=== PATIENT | male | born 1935 | race Caucasian/White ===

== ENCOUNTER 2016-12-16 14:15 | Emergency (ER) | payer MEDICARE ==
[~2016-12-16] VITALS: Ht 167.6 cm; Wt 61.2 kg
[~2016-12-16 14:15] MED LIST: AMOXICILLIN500 MG PO; ASPIRIN81 MG PO; COLACE100 MG PO; DUONEB 3 MG/3 ML3 M1 NEB; GLIPIZIDE5 MG PO; HYDRODIURIL25 MG PO; HYDROXYZINE PAM25 M1 PO; LASIX40 MG PO; LEVAQUIN250 MG PO; LIPITOR40 MG PO; LIPITOR80 MG PO; LOPRESSOR50 M1 PO; METOPROLOL SR50 MG PO; PRILOSEC20 M2 PO; VITAMIN D1000 IU PO; [UNRECOGNIZED DRUG - OTHER] PO
[2016-12-16 14:21] VITALS: BP 189/80
[2016-12-16 14:46] LABS: BASO % 0.2 % (0.0-1.0); EOS # 0.4 10*3/uL (0.0-0.4); EOS % 4.9 % (1.0-4.0); HEMATOCRIT 37.1 % (42.0-52.0); HEMOGLOBIN 12.2 g/dl (14.0-18.0); IG # 0.1 10*3/uL (0.0-0.1); LYMPH # 2.2 10*3/uL (1.3-4.4); LYMPH % 24.7 % (27.0-41.0); MEAN CELL VOLUME 90.5 fl (80.0-94.0); MEAN CORPUSCULAR HGB 29.8 pg (27.0-31.0); MEAN CORPUSCULAR HGB CONC 32.9 g/dl (33.0-37.0); MEAN PLATELET VOLUME 9.1 fl (9.6-12.3); MONO # 0.8 10*3/uL (0.1-1.0); MONO % 9.2 % (3.0-9.0); NEUT # 5.3 10*3/uL (2.3-7.9); NEUT % 60.4 % (47.0-73.0); PLATELET COUNT AUTOMATED 221 10*3/uL (130-400); RED CELL DISTRI WIDTH 12.5 % (0-14.5); WHITE BLOOD COUNT 8.7 10*3/uL (4.8-10.8)
[2016-12-16 15:00] LABS: ALBUMIN 3.4 gm/dl (3.1-4.5); ALKALINE PHOSPHATASE 72 U/L (45-117); BILIRUBIN, TOTAL 0.5 mg/dl (0.2-1.0); BUN 24 mg/dl (7-24); CARBON DIOXIDE 26 mmol/L (21-32); CHLORIDE 104 mmol/L (98-107); EST GLOM FILT AFRICAN AMERICAN 52 ml/min; GLUCOSE 167 mg/dL (65-99); SGOT/AST 19 IU/L (3-35); SGPT/ALT 34 U/L (12-78); SODIUM 141 mmol/L (136-145)
[2016-12-16 17:23] LABS: BILIRUBIN NEGATIVE (NEGATIVE); BLOOD NEGATIVE (NEGATIVE); CLARITY CLEAR (CLEAR); COLOR YELLOW (YELLOW); GLUCOSE NEGATIVE (NEGATIVE); KETONE NEGATIVE (NEGATIVE); LEUKO ESTERASE NEGATIVE (NEGATIVE); NITRITE NEGATIVE (NEGATIVE); PH 5.5 (5.0-9.0); PROTEIN NEGATIVE (NEGATIVE); SPECIFIC GRAVITY <= 1.005 (1.005-1.030); UROBILINOGEN 0.2 E.U./dl (0.2-1.0)
[2016-12-16 17:33] LABS: BACTERIA TRACE; RBC 0-2 rbc/hpf (0-2); URINE AMPHETAMINES < 1000 (1000ng/ml); URINE BARBITURATES < 200 (200ng/ml); URINE COCAINE < 300 (300ng/ml); URINE REFLEX COMMENT NO (NO)
[2016-12-16] MEDS ORDERED: MIRALAX17 GM PO (18:43)
[2016-12-16] MEDS ORDERED: VENTOLIN H0.09 MG/AC INH (18:44)
[2016-12-16] MEDS ORDERED: OMEPRAZOLE20 M2 PO (18:44)
== END 2016-12-16 18:23 | disposition home health service (06) ==
LOC: ED 14:15
PROVIDERS: Physician Assistant
DX: R45.851 Suicidal ideations (principal); F32.1 Major depressive disorder, single episode, moderate; Z79.82 Long term (current) use of aspirin; Z90.49 Acquired absence of other specified parts of digestive tract; Z79.899 Other long term (current) drug therapy

== ENCOUNTER 2016-12-16 18:20 | Inpatient (IN) | payer MEDICARE ==
[~2016-12-16] VITALS: Ht 160 cm; Wt 8303.5 kg
[2016-12-16] MEDS ORDERED: MIRALAX17 GM PO (18:43)
[2016-12-16] MEDS ORDERED: VENTOLIN H0.09 MG/AC INH (18:44)
[2016-12-16] MEDS ORDERED: OMEPRAZOLE20 M2 PO (18:44)
[2016-12-16 18:54] VITALS: BP 150/66
[2016-12-16 21:17] VITALS: BP 153/65
[2016-12-17 07:53] VITALS: BP 124/61
[2016-12-17 08:14] LABS: HEMOGLOBIN A1c 7.9 % (4.8-5.6)
[2016-12-17 08:44] LABS: VITAMIN D, 25-HYDROXY 37.3 ng/mL (30-100)
[2016-12-17 20:40] VITALS: BP 139/65
[2016-12-18 03:59] VITALS: BP 153/65
[2016-12-18 07:49] VITALS: BP 123/63
[2016-12-18 20:00] VITALS: BP 140/72
[2016-12-19 08:11] VITALS: BP 120/65
[2016-12-19 17:48] VITALS: BP 137/86
[2016-12-19 20:15] VITALS: BP 148/70
[2016-12-20 08:12] VITALS: BP 127/68
[2016-12-20 19:57] VITALS: BP 138/62
[2016-12-21 08:00] VITALS: BP 145/68
[2016-12-21 20:00] VITALS: BP 136/64
[2016-12-22 08:00] VITALS: BP 131/67
[2016-12-22] MEDS ORDERED: LATU40TA PO (09:27)
[2016-12-22] MEDS ORDERED: CITALOPRAM HYDR20 MG PO (09:27)
== END 2016-12-22 11:10 | disposition other institution (70) | DRG 885 ==
LOC: 3N 18:20
PROVIDERS: Psychiatry & Neurology Psychiatry
DX: F33.9 Major depressive disorder, recurrent, unspecified (principal); R45.851 Suicidal ideations; E11.9 Type 2 diabetes mellitus without complications; F23 Brief psychotic disorder; G31.84 Mild cognitive impairment of uncertain or unknown etiology; I10 Essential (primary) hypertension; E78.5 Hyperlipidemia, unspecified; E03.9 Hypothyroidism, unspecified; I25.10 Atherosclerotic heart disease of native coronary artery without angina pectoris; F63.9 Impulse disorder, unspecified

== ENCOUNTER 2019-03-05 11:58 | Inpatient (IN) | payer MEDICARE, MEDICAID ==
[~2019-03-05] VITALS: Ht 167.6 cm; Wt 78.9 kg
[~2019-03-05 11:58] MED LIST changes: +CITALOPRAM HYDR20 MG PO; +LATU40TA PO; +MEDROL DOSEPAK4 MG PO; +MIRALAX17 GM PO; +OMEPRAZOLE20 M2 PO; +VENTOLIN H0.09 MG/AC INH
[2019-03-05 12:13] VITALS: BP 151/66
--- NOTE | 2019-03-05 12:27 | NUR ---
PT MOVED TO ROOM 4 BECAUSE PT STATED HE HAD THOUGHTS OF PUTTING THE CALL LIGHT AROUND HIS NECK.
[2019-03-05 12:37] LABS: BASO % 0.4 % (0.0-1.0); EOS # 0.3 10*3/uL (0.0-0.4); EOS % 3.7 % (1.0-4.0); HEMOGLOBIN 11.8 g/dl (14.0-18.0); LYMPH # 2.2 10*3/uL (1.3-4.4); LYMPH % 28.3 % (27.0-41.0); MEAN CELL VOLUME 92.1 fl (80.0-94.0); MEAN CORPUSCULAR HGB 30.2 pg (27.0-31.0); MEAN CORPUSCULAR HGB CONC 32.8 g/dl (33.0-37.0); MEAN PLATELET VOLUME 8.9 fl (9.6-12.3); MONO # 0.7 10*3/uL (0.1-1.0); MONO % 9.1 % (3.0-9.0); NEUT # 4.4 10*3/uL (2.3-7.9); PLATELET COUNT AUTOMATED 224 10*3/uL (130-400); RED BLOOD COUNT 3.91 10*6/uL (4.50-5.90); RED CELL DISTRI WIDTH 12.6 % (0-14.5); WHITE BLOOD COUNT 7.6 10*3/uL (4.8-10.8)
[2019-03-05 12:48] LABS: ACT PARTIAL THROMBO TIME 23.9 SECONDS (20.0-32.1); INTERNATIONAL NORM RATIO 0.9 (2.0-3.5)
[2019-03-05 12:53] LABS: ALBUMIN 3.3 gm/dl (3.1-4.5); ALKALINE PHOSPHATASE 68 U/L (45-117); BUN 26 mg/dl (7-24); CHLORIDE 104 mmol/L (98-107); CREATININE 1.31 mg/dL (0.70-1.30); POTASSIUM 5.2 mmol/L (3.5-5.1); SGOT/AST 19 IU/L (3-35); SGPT/ALT 27 U/L (12-78); SODIUM 138 mmol/L (136-145); TOTAL PROTEIN 6.6 gm/dL (6.4-8.2)
[2019-03-05 12:56] LABS: ETHYL ALCOHOL < 3.0 mg/dl (<3); TROPONIN I < 0.015 ng/ml (<0.045)
[2019-03-05 13:09] LABS: BILIRUBIN NEGATIVE (NEGATIVE); BLOOD NEGATIVE (NEGATIVE); CLARITY SL CLOUDY (CLEAR); COLOR YELLOW (YELLOW); GLUCOSE TRACE (NEGATIVE); KETONE NEGATIVE (NEGATIVE); LEUKO ESTERASE TRACE (NEGATIVE); NITRITE NEGATIVE (NEGATIVE); UROBILINOGEN 0.2 E.U./dl (0.2-1.0)
[2019-03-05 13:15] LABS: MUCOUS TRACE
[2019-03-05 13:18] LABS: URINE AMPHETAMINES < 1000 (1000ng/ml); URINE BARBITURATES < 200 (200ng/ml); URINE BENZODIAZEPINES < 200 (200ng/ml); URINE CANNABINOIDS (THC) < 50 (50ng/ml); URINE COCAINE < 300 (300ng/ml); URINE METHADONE < 300 (300ng/ml); URINE OPIATES < 300 (300ng/ml)
[2019-03-05 13:26] LABS: URINE PHENCYCLIDINE < 25 (25ng/ml)
--- NOTE | 2019-03-05 13:35 | NUR ---
JOSR BAÑUELOS HERE TO SEE PT.
--- NOTE | 2019-03-05 13:43 | NUR ---
psychiatric assessment: met with client to assess for suicidal ideation, and safety, client talked about a year ago he was accused of touching a lady there and he got upset, there was no confirmation of this, he said that he got upset last night because his niece told him that his room smelled bad and so he got very depressed, he had a knife which he gave up to the social staff worker and he thought about cutting himself and then in the night he woke up and thought about hanging himself with the cord in the bathroom so they sent him here, he told me that he was here on out unit once before. client reports that he is depressed and he is upset. client has no psychosis, he thinks that maybe his nephew is POA, but he is willing to be voluntary to this unit, i did call and make the referral and will wait, spoke with his nurse and dr mcneil.
--- NOTE | 2019-03-05 14:40 | NUR ---
U WILL CALL BACK WHEN THEY DECIDE IF THEY WILL TAKE PT. PT IS CURRENTLY EATING IN BED. IN NO ACUTE DISTRES.
[2019-03-05 14:55] LABS: BUN 25 mg/dl (7-24); CHLORIDE 109 mmol/L (98-107); CREATININE 1.22 mg/dL (0.70-1.30); SODIUM 139 mmol/L (136-145)
[2019-03-05 15:09] LABS: POTASSIUM 4.2 mmol/L (3.5-5.1)
--- NOTE | 2019-03-05 15:11 | NUR ---
Dr. Quiñones notified of critical glucose of 49.
--- NOTE | 2019-03-05 16:16 | NUR ---
PT RESTING COMFORTABLY IN BED. [facility] CALLED AND IS ON THEIR WAY TO GET PT.
--- NOTE | 2019-03-05 16:30 | NUR ---
OSCAR BARRERA a 83 year old M admitted via wheel chair from the EMERGENCY ROOM as a voluntary admission. Arrived on unit at 1630. ALLERGIES: KNA. Vital signs are: 97.3-83-16 157/60. The client signed the following forms with stated understanding: Authorization For The Release of Medical Information, Clothing List, Consent to Voluntary Admission and Hospitalization, Consent and Release Forms/Receipt of Rights, Acknowledgement of Advance Directive Information, Behavioral Health Consent Form, and Informed Consent of Medications. Admitted under the services of VIJAYA Lloyd MD. A search was conducted and hazardous articles were removed. Client was oriented to the unit. JOSR LAU
[2019-03-05 16:42] VITALS: BP 157/60
--- NOTE | 2019-03-05 17:50 | NUR ---
DR. HO NOTIFIED OF NEW ADMISSION, REVIEW MEDICATIONS WITH NEW ORDERS.
[2019-03-05 20:00] VITALS: BP 144/66
--- NOTE | 2019-03-05 20:43 | NUR ---
EVENING/DISCUSSION/RELAXTION PT6 ATTENDED AND PARTICIPATED IN ALL GROUP ACTIVITY'S. PT OPEN IN DISCUSSION AND ON TASK. PT DID NOT EXPRESS ANY S.I AT THIS TIME AND WILL CONTINUE TO ATTEND AND PARTICIPATE IN FUTURE GROUP SESSIONS.
--- NOTE | 2019-03-05 21:15 | NUR ---
DR LAROSE ON UNIT TO SEE PT FOR MEDICAL MANAGEMENT
--- NOTE | 2019-03-05 23:29 | NUR ---
24 HR chart check completed.
--- NOTE | 2019-03-06 05:05 | NUR ---
PT SLEPT FROM [id number]. WAS AWAKE & REMAINED IN BED QUIETLY. RETURNED TO SLEEP @ 0200.
--- NOTE | 2019-03-06 05:12 | NUR ---
PT HAS SLEPT PAST 2114
[2019-03-06 07:02] LABS: THYROID STIM HORMONE (HS) 1.38 uIU/ml (0.358-4.75)
[2019-03-06 08:06] LABS: VITAMIN D, 25-HYDROXY 45.8 ng/mL (30-100)
[2019-03-06 08:54] VITALS: BP 131/72
--- NOTE | 2019-03-06 09:12 | NUR ---
PHYSICAL THERAPY Nursing screen received and chart reviewed. Physical therapy referral received. Thank you. Marcelle Lerma,PT,DPT.
--- NOTE | 2019-03-06 11:37 | NUR ---
Spoke with Marylu at [facility]. Pt. is Custodial Care at facility and will return at discharge. Clinical Updates faxed to facility.
--- NOTE | 2019-03-06 15:33 | NUR ---
Treatment Plan meeting with Dr. Marinelli, RN, AT, and Precision Assembler Bench. Plan for discharge Early Next week. Pt. came to [facility] from [facility]. Will reach out to facility today to discuss discharge Planning.
--- NOTE | 2019-03-06 15:36 | NUR ---
PM GROUP/TEAR BOTTLES PT ATTENDED AFTERNOON GROUP THERAPY AND PARTICIPATED BY READING A BOOK THAT A FAMILY MEMBER HAD BROUGHT HIM. PT WAS QUIET AND FOCUSED. PT STATED, "I KNOW WHY I'M HERE NOW! THIS BOOK I'M READING TELLS ABOUT PEOPLE WHO DIDN'T BELIEVE IN GOD AND GOT INTO TROUBLE AND STARTED PRAYING AND GOD HELPED THEM. THAT'S IT, GOD IS TRYING TO HELP ME"
[2019-03-06 20:00] VITALS: BP 133/65
--- NOTE | 2019-03-06 21:58 | NUR ---
24 HR chart check completed.
--- NOTE | 2019-03-07 05:39 | NUR ---
PT HAS SLEPT PAST 2129
[2019-03-07 08:00] VITALS: BP 133/66
--- NOTE | 2019-03-07 08:30 | NUR ---
DR. HO ON FLOOR TO ASSESS PT.
--- NOTE | 2019-03-07 08:45 | NUR ---
Patient resting quietly with no c/o discomfort. Respirations easy and regular. Vital signs stable. No overt distress. HAILEE RUBIO
--- NOTE | 2019-03-07 10:19 | NUR ---
PHYSICAL THERAPY Physical therapy screen complete. Nursing reports patient is ambulatory. No PT needs at this time. Discharge PT orders. Thank you. Marcelle Lerma,PT,DPT
--- NOTE | 2019-03-07 10:30 | NUR ---
Dr. Marinelli met with Nursing staff this a.m. for treatment Plan meeting. Plan for discharge early next week with return to [facility].
--- NOTE | 2019-03-07 11:58 | NUR ---
AM GROUP/EXERCISE PT ATTENDED AND PARTICIPATED IN ALL GROUP ACTIVITIES. PT EXPRESSED NO SUICIDAL IDEATIONS WHILE IN GROUP.
--- NOTE | 2019-03-07 15:36 | NUR ---
PM GROUP/PAINTING AND CARDS PT ATTENDED AND PARTICIPATED IN ALL GROUP ACTIVITIES. PT EXPRESSED NO SUICIDAL IDEATIONS WHILE IN GROUP
--- NOTE | 2019-03-07 17:36 | NUR ---
Patient resting quietly with no c/o discomfort. Respirations easy and regular. Vital signs stable. No overt distress. HAILEE RUBIO
--- NOTE | 2019-03-07 18:51 | NUR ---
PT HAS NO ADVERSE MOODS OR BEHAVIORS THIS SHIFT. PT IS MEDICATION COMPLIANT. AMBULATORY IN HALLS, GAIT STEADY. PT PARTICIPATED IN GROUP, APPETITE GOOD. NO C/O AT THIS TIME. Q 15 MIN MONITORING PER POLICY.
[2019-03-07 20:00] VITALS: BP 138/62
--- NOTE | 2019-03-07 21:10 | NUR ---
P-RELIGOUS PREOCCUPATION. I-REDIRECTION WITH 1:1 THERAPEUTIC INTERVENTIONS. EDUCATE AND ENCOURAGE MEDICATION COMPLIANCE R-PATIENT STATING TO THIS NURSE "WE ARE ALL BROTHERS AND SISTERS IN [place]. I WILL PRAY FOR EVERYONE. MAYBE I SHOULD RUN FOR PRESIDENT. ANYTHING IS POSSIBLE. YOU PEOPLE DESERVE THE SAME THINGS EVERYONE ELSE. YOU GUYS HAVE FOUGHT FOR OUR COUNTRY ALSO. I FOUND A NEW FRIEND TODAY, HIS NAME IS SKYLER. P-CONTINUE TO ENCOURAGE MEDICATION COMPLIANCE, ENCOURAGE GROUP THERAPY WHILE AWAKE
[2019-03-08 08:00] VITALS: BP 127/59
--- NOTE | 2019-03-08 08:30 | NUR ---
Treatment Plan meeting with Dr. Marinelli, RN, AT, SW and Leadite Worker. Plan for discharge Next week. Pt. will return to [facility].
--- NOTE | 2019-03-08 08:37 | NUR ---
Patient resting quietly with no c/o discomfort. Respirations easy and regular. Vital signs stable. No overt distress. HAILEE RUBIO
--- NOTE | 2019-03-08 11:17 | NUR ---
Clinical Updates faxed to [facility] Attn: Marylu . Notified Marylu of plans to discharge next week.
--- NOTE | 2019-03-08 11:43 | NUR ---
AM GROUP/LEISURE INTERESTS PT ATTENDED MORNING GROUP THERAPY AND PARTICIPATED BY DOING SEVERAL WORDSEARCH PUZZLES. PT WAS QUIET AND ON TASK. PT EXPRESSED NO SUICIDAL IDEATIONS NOR ANY AUDITORY HALLUCINATIONS WHILE IN GROUP
--- NOTE | 2019-03-08 18:18 | NUR ---
PT DISCUSSED ADVENT TODAY, WROTE STORY ABOUT A BOY AND A DOG. PT SHOWED WORK TO PEERS AND STAFF, INTERACTING APPROPRIATELY WITH ALL. PT PARTICIPATING IN GROUPS, CALM, PLEASANT, COOPERATIVE.
[2019-03-08 19:28] VITALS: BP 137/62
--- NOTE | 2019-03-08 23:50 | NUR ---
P-ISOLATIVE I-REDIRECTION WITH 1:1 THERAPEUTIC INTERVENTIONS. EDUCATE AND ENCOURAGE MEDICATION COMPLIANCE R-PATIENT ISOLATIVE IN ROOM THROUGHOUT SHIFT. PATIENT MEDICATION COMPLIANT. PATIENT AMBULATING IN ROOM WITH STEADY GAIT. P-CONTINUE TO ENCOURAGE MEDICATION COMPLIANCE, ENCOURAGE GROUP THERAPY WHILE AWAKE
--- NOTE | 2019-03-09 00:58 | NUR ---
24 HR chart check completed.
--- NOTE | 2019-03-09 06:46 | NUR ---
PATIENT SLEPT 7 HOURS OF UNINTERRUPTED SLEEP THROUGHOUT SHIFT. Q 15 MINUTE CHECKS MAINTAINED
[2019-03-09 08:29] VITALS: BP 103/55
--- NOTE | 2019-03-09 11:48 | NUR ---
AM/EXERCISE/REMINISCE/ART PT ATTENDED AND PARTICIPATED IN GROUP. PT PLEASANT AND ON TASK WITH NO S.I. OR HALLUCINATIONS EXPRESSED AT THIS TIME. PT WILL CONTINUE TO ATTEND AN DPARTICIPATE IN FUTURE GROUP SESSIONS.
--- NOTE | 2019-03-09 14:36 | NUR ---
PT HAS NO ADVERSE MOODS OR BEHAVIORS. STATES HE IS HAPPY, PLEASANT, COOPERATIVE WITH ASSESSMENT. DENIES SI/HI. DENIES HALLUCINATIONS OR DELUSIONS. AMBULATES IN HALLS WITHOUT DIFFICULTY, GAIT STEADY. Q15 MIN MONITORING PER POLICY.
--- NOTE | 2019-03-09 15:56 | NUR ---
PM GROUP/MUSIC/GAMES PT ATTENDED AN DPARTICIPATED IN GROUP. PT PLEASANT AND ON TASK WITH NO S.I. OR HALLUCINATIONS EXPRESSED AT THIS TIME. PT WILL CONTINUE TO ATTEND AN DPARTICIPATE IN FUTURE GROUP SESSIONS.
[2019-03-09 19:49] VITALS: BP 140/61
--- NOTE | 2019-03-09 23:36 | NUR ---
P-ISOLATIVE, DEPRESSED MOOD I-REDIRECTION WITH 1:1 THERAPEUTIC INTERVENTIONS. EDUCATE AND ENCOURAGE MEDICATION COMPLIANCE R-PATIENT ISOLATIVE IN DINING AREA WITH PEERS. PATIENT WATCHING A MOVIE AND WITH MINIMAL INTERACTION WITH PEERS. PATIENT PROVIDED NOURISHMENT AND FLUIDS. PATIENT MEDICATION COMPLIANT PATIENT AMBULATING IN ROOM AND ON UNIT WITH STEADY GAIT. P-CONTINUE TO ENCOURAGE MEDICATION COMPLIANCE, ENCOURAGE GROUP THERAPY WHILE AWAKE
--- NOTE | 2019-03-10 00:34 | NUR ---
24 HR chart check completed.
--- NOTE | 2019-03-10 06:23 | NUR ---
PATIENT SLEPT 6 HOURS OF INTERRUPTED SLEEP THROUGHOUT SHIFT. Q 15 MINUTE CHECKS MAINTAINED
[2019-03-10 08:07] VITALS: BP 123/70
--- NOTE | 2019-03-10 12:10 | NUR ---
AM/BRAIN GAMES/MUSIC PT ATTENDED AND PARTICIPATED IN GROUP. PT PLEASANT AND ON TASK WITH NO S.I. OR HALLUCINATIONS EXPRESSED AT THIS TIME. PT WILL CONTINUE TO ATTEND AND PARTICIPATE IN FUTURE GROUP SESSIONS TO BEST OF ABILITY.
--- NOTE | 2019-03-10 14:38 | NUR ---
PATIENT IS ALERT AND ORIENTED TO PERSON, PLACE, TIME AND SITUATION; ABLE TO VOICE NEEDS. VERY HARD OF HEARING WITH HEARING AIDES IN PLACE. MOOD IS STABLE. DENIES ANY HALLUCIATIONS, DELUSIONS, HI/SI OR PAIN. PATIENT INTERACTIVE WITH STAFF AND PARTICIPATED IN GROUP SESSION. 1 PERSON ASSIST WITH VERBAL PROMPTING ONLY FOR ACTIVITIES OF DAILY LIVING, CONTINENT OF BOWEL AND BLADDER, SET UP FOR MEALS, ITNAKES ARE GOOD WITH ADEQUATE FLUIDS. AMBULATES IN HALLWAY WITH STEADY GAIT. USES HAND RAILING IN HALLWAY. MEDICATION COMPLAINT. Q 15 MINUTE SAFETY CHECKS MAINTAINED. CONTINUE TO MONITOR MOOD AND SUICIDAL IDEATIONS. PROVIDE ONE ON ONE AND REDIRECTION NEEDED.
--- NOTE | 2019-03-10 16:16 | NUR ---
Shift chart check completed.
[2019-03-10 20:00] VITALS: BP 110/60
--- NOTE | 2019-03-10 22:15 | NUR ---
QUIET AND MINIMALLY INTERACTIVE. WATCHED TV DURING SNACK. DENIES SUICIAL IDEATIONS, CONTRACTS FOR SAFETY. UNINTERESTED IN 1:1. WILL MONITORFOR SAFETY AND CHANGE IN MOOD AND OR BEHAVIOR
--- NOTE | 2019-03-11 04:16 | NUR ---
24 HR chart check completed.
--- NOTE | 2019-03-11 05:58 | NUR ---
S;E[T WE;; [AST 2130 WITH ONE SHORT AWAKENING
[2019-03-11 08:05] VITALS: BP 114/77
--- NOTE | 2019-03-11 11:35 | NUR ---
AM GROUP PT ATTENDED MORNING GROUP THERAPY AND PARTICIPATED BY BUILDING A BIRDHOUSE AND CUTTING OUT IMAGES TO DECORATE IT WITH. PT EXPRESSED NO SUICIDAL IDEATIONS OR AUDITORY HALLUCINATIONS WHILE IN GROUP
--- NOTE | 2019-03-11 12:05 | NUR ---
DR. HO ON UNIT TO ASSESS PATIENT.
--- NOTE | 2019-03-11 14:20 | NUR ---
PATIENT IS ALERT TO PERSON, PLACE, TIME AND SITUATION; ABLE TO VOICE NEEDS. MOOD IS STABLE, PLEASANT DEMEANOR. DENIES ANY HALLUCINATIONS, DELUSIONS, HI/SI OR PAIN. PATIENT PARTICIPATED IN GROUP SESSION, INTERACTIVE WITH STAFF. HARD OF HEARING NOTED. 1 PERSON ASSIST WITH ACTIVITIES OF DAILY LIVING, CONTINENT OF BOWEL AND BLADDER; SET UP FOR MEALS, INTAKE ARE GOOD WITH ADEQUATE FLUIDS. MEDICATION COMPLAINT. Q 15 MINUTE SAFETY CHECKS MAINTAINED. AMBULATES WITH STEADY UTILIZES THE ARM RAILS. CONTINUE TO MONITOR MOOD. PROVIDE ONE ON ONE FOR EMOTIONAL SUPPORT AND REDIRECTION NEEDED.
--- NOTE | 2019-03-11 15:41 | NUR ---
PM GROUP PT DID NOT ATTEND AFTERNOON GROUP THERAPY. PT WAS IN BED RESTING.
[2019-03-11 19:28] VITALS: BP 130/64
--- NOTE | 2019-03-11 20:33 | NUR ---
EVENING/LEISURE SKILLS PT ATTENDED AND PARTICIPATED IN GROUP. PT PLEASANT AND ON TASK WITH NO HALLUCINATIONS OR SUICIDAL IDEATIONS EXPRESSED. PT WILL CONTINUE TO ATTEND AND PARTICIPATE IN FUTURE GROUP SESSIONS.
--- NOTE | 2019-03-11 21:56 | NUR ---
INTERACTIVE WITH STAFF AND PEERS. WATCHING Lot[employer] FOOTBALL AND CHEERING ALONG. TALKING WITH PEER ABOUT THE TEAM. SMILING, MEDICATION COMPLIANT AFTER EDUCATION. DENIES S/I AT THIS TIME. WILL CONTINUE TO MONITOR AND WATCH FOR CHANGES IN MOOD OR BEHAVIOR.
--- NOTE | 2019-03-12 02:33 | NUR ---
24 HR chart check completed.
--- NOTE | 2019-03-12 05:47 | NUR ---
SLEPT WELL PAST 0030 AM AND WATCHING ENTIRE FOOTBALL GAME. MINIMAL AWAKENING NOTED.
[2019-03-12 07:41] VITALS: BP 107/83
--- NOTE | 2019-03-12 08:00 | NUR ---
Treatment Plan meeting with Dr. Marinelli, RN, AT, and Cabin Service Agent. Plan for discharge Monday. Pt. will return to [facility].
[2019-03-12 09:33] VITALS: BP 124/62
--- NOTE | 2019-03-12 11:00 | NUR ---
DR. HO ON UNIT TO ASSESS PATIENT.
--- NOTE | 2019-03-12 11:33 | NUR ---
AM GROUP PT ATTENDED MORNING GROUP THERAPY AND PARTICIPATED BY DECORATING HIS DefenCall. PT WAS QUIET AND ON TASK. PT EXPRESSED NO SUICIDAL IDEATIONS WHILE IN GROUP. PT WAS NOT WEARING HIS HEARING AIDS AND STATED WHEN ASKED IF HE WAS OKAY, "I AM HEARING THINGS, LIKE A HUMMING NOISE." EXPLAINED TO PT THAT IT WAS 2 PEERS OXYGEN CONCENTRATORS RUNNING.
--- NOTE | 2019-03-12 11:52 | NUR ---
Spoke with Marylu at [facility] this a.m. Aware of Pt. discharge tommorow. Transportation set up with facility Van to transport with sorting supervisor time 2:30 p.m.
--- NOTE | 2019-03-12 13:42 | NUR ---
Occupational Therapy referral received and screen completed. Patient is independent in mobility and able to perform self care with occasional supervision per nursing. At this time no further OT indicated. Patient to have 24 hr supervision/assist upon d/c to detention. Discharge OT order. Mica Pereira OTR/l
--- NOTE | 2019-03-12 16:45 | NUR ---
PATIENT STUMBLING IN HALLWAY, UNSTEADY GAIT; ASSISTED BY 2 NURSES IN DINING ROOM INTO CHAIR. VITALS: 97.5, 148/72, 104, 22, 98% RA. NEURO'S WNL. DR. HO NOTIFIED. CONTINUE TO MONITOR AND NOTIFY OF ANY OTHER OCCURRANCES. DR. BARTLETT NOTIFIED. NEW ORDERS IN PLACE.
--- NOTE | 2019-03-12 19:18 | NUR ---
PATIENT IS ALERT AND ORIENT TO PERSON, PLACE, TIME AND SITUATION. HARD OF HEARING. MOOD IS STABLE. DENIES ANY HALLUCINATIONS, DELUSIONS, HI/SI OR PAIN. MEDICATION COMPLAINT WITH EDUCATION. Q 15 MINUTE SAFETY CHECKS MAINTAINED. INDEPENDENT WITH ACTIVITIES OF DAILY LIVING, ASSIST NEEDED. CONTINENT OF BOWEL AND BLADDER, SET UP FOR MEALS INTAKES ARE GOOD WITH ADEQUATE FLUIDS. PATIENT HAD ONE EPISODE OF BEING UNSTEADY, NO FURTHER EPISODE NOTED THROUGHOUT REST OF SHIFT. CONTINUE TO MONITOR FOR VOICED SUICIDAL IDEATIONL;PROVIDE ONE ON ONE AND REDIRECTION NEEDED.
[2019-03-12 19:47] VITALS: BP 115/80
--- NOTE | 2019-03-12 21:00 | NUR ---
NO CHANGES IN CLIENT. ATE SNACK AND WAS WATCING TV BUT READY FOR BED. DENIES ANY VERTIGO OR PROBLEMS. HE IS MOVING SELF IN WHEELCHAIR. MEDICATION COMPLIANT AFTER EDUCATION.
--- NOTE | 2019-03-13 03:41 | NUR ---
24 HR chart check completed.
--- NOTE | 2019-03-13 06:20 | NUR ---
SLEPT WELL PAST 2300PM
[2019-03-13 07:46] VITALS: BP 142/72
--- NOTE | 2019-03-13 08:32 | NUR ---
Treatment Plan meeting with Dr. Marinelli RN, AT, and Nuclear Radiologist. Plan for discharge today. Pt. to return to [facility]. Facility Van to transport with pickling machine operator time 2:30 p.m.
[2019-03-13] MEDS ORDERED: MIRTAZAPINE15 M2 PO (08:42)
[2019-03-13] MEDS ORDERED: BENZTROPINE ME0.5 MG PO (08:42)
[2019-03-13] MEDS ORDERED: RISPERIDONE0.5 MG PO (08:42)
[2019-03-13] MEDS ORDERED: NAMENDA-5 PO (08:42)
[2019-03-13] MEDS ORDERED: RIVASTIGMINE1 EAC1 T (08:42)
[2019-03-13] MEDS ORDERED: CEPACOL SORE T1 EACH PO (10:40)
--- NOTE | 2019-03-13 11:14 | NUR ---
Discharge Paperwork faxed to [facility] ([place]
--- NOTE | 2019-03-13 11:44 | NUR ---
AM GROUP/LEISURE INTERESTS PT WAS PRESENT FOR MORNING GROUP THERAPY AND PARTICIPATED BY FINISHING HIS BIRDHOUSE AND DOING A WORDSEARCH PUZZLE. PT IS SET TO BE DISCHARGED FROM THE UNIT THIS AFTERNOON.
--- NOTE | 2019-03-13 14:16 | NUR ---
Patient discharging today to [facility]. Follow-up will be with Dr Weaver, visiting psychiatrist. While at [facility], pt's mood improved. Pt denies suicidal ideations. He was pleasant and cooperative. Pt is hearing impaired and had difficulty hearing staff and peers. Pt would sit in group activity but often chose to work on word search/crossword puzzles.
--- NOTE | 2019-03-13 15:00 | NUR ---
Discharge instructions reviewed with patient/family. Patient receptive and verbalizes understanding. Follow-up care arranged. Written instructions given to patient AND FACILILTY CARD LACER, NURSE TO NURSE GIVEN TO VLAD HURTADO
== END 2019-03-13 15:00 | DRG 57 ==
LOC: ED 11:58 → 3N 15:22
PROVIDERS: Emergency Medicine; ADMIT Psychiatry & Neurology Psychiatry
DX: G30.1 Alzheimer's disease with late onset (principal); F33.3 Major depressive disorder, recurrent, severe with psychotic symptoms; R45.851 Suicidal ideations; J45.41 Moderate persistent asthma with (acute) exacerbation; M19.90 Unspecified osteoarthritis, unspecified site; F34.1 Dysthymic disorder; N18.3 Chronic kidney disease, stage 3 (moderate); I25.10 Atherosclerotic heart disease of native coronary artery without angina pectoris; I12.9 Hypertensive chronic kidney disease with stage 1 through stage 4 chronic kidney disease, or unspecified chronic kidney disease; J02.9 Acute pharyngitis, unspecified; K21.0 Gastro-esophageal reflux disease with esophagitis; E87.5 Hyperkalemia; K59.09 Other constipation; E78.2 Mixed hyperlipidemia; M47.892 Other spondylosis, cervical region; F41.1 Generalized anxiety disorder; F02.80 Dementia in other diseases classified elsewhere, unspecified severity, without behavioral disturbance, psychotic disturbance, mood disturbance, and anxiety; E03.9 Hypothyroidism, unspecified; E11.22 Type 2 diabetes mellitus with diabetic chronic kidney disease; Z90.49 Acquired absence of other specified parts of digestive tract

== ENCOUNTER 2019-09-13 19:30 | Inpatient (IN) | payer MEDICARE, MEDICAID ==
[~2019-09-13] VITALS: Ht 180 cm; Wt 77.7 kg
[~2019-09-13 19:30] MED LIST changes: +BENZTROPINE ME0.5 MG PO; +CEPACOL SORE T1 EACH PO; +MIRTAZAPINE15 M2 PO; +NAMENDA-5 PO; +RISPERIDONE0.5 MG PO; +RIVASTIGMINE1 EAC1 T
[2019-09-13 19:38] VITALS: BP 122/24
[2019-09-13 20:06] LABS: BILIRUBIN NEGATIVE (NEGATIVE); BLOOD 2+ (NEGATIVE); CLARITY CLEAR (CLEAR); COLOR YELLOW (YELLOW); GLUCOSE NEGATIVE (NEGATIVE); KETONE NEGATIVE (NEGATIVE); LEUKO ESTERASE 2+ (NEGATIVE); NITRITE NEGATIVE (NEGATIVE); SPECIFIC GRAVITY 1.015 (1.005-1.030); UROBILINOGEN 0.2 E.U./dl (0.2-1.0)
[2019-09-13 20:07] LABS: BACTERIA 1+
[2019-09-13 20:10] LABS: URINE AMPHETAMINES < 1000 (1000ng/ml); URINE BARBITURATES < 200 (200ng/ml); URINE BENZODIAZEPINES < 200 (200ng/ml); URINE CANNABINOIDS (THC) < 50 (50ng/ml); URINE COCAINE < 300 (300ng/ml); URINE METHADONE < 300 (300ng/ml); URINE OPIATES < 300 (300ng/ml)
[2019-09-13 20:23] LABS: BASO % 0.2 % (0.0-1.0); EOS # 0.4 10*3/uL (0.0-0.4); EOS % 5.6 % (1.0-4.0); HEMATOCRIT 35.7 % (42.0-52.0); HEMOGLOBIN 11.6 g/dl (14.0-18.0); LYMPH # 1.8 10*3/uL (1.3-4.4); LYMPH % 28.9 % (27.0-41.0); MEAN CELL VOLUME 89.7 fl (80.0-94.0); MEAN CORPUSCULAR HGB 29.1 pg (27.0-31.0); MEAN CORPUSCULAR HGB CONC 32.5 g/dl (33.0-37.0); MEAN PLATELET VOLUME 9.3 fl (9.6-12.3); MONO # 0.6 10*3/uL (0.1-1.0); MONO % 8.8 % (3.0-9.0); NEUT # 3.5 10*3/uL (2.3-7.9); NEUT % 56.2 % (47.0-73.0); PLATELET COUNT AUTOMATED 208 10*3/uL (130-400); RED BLOOD COUNT 3.98 10*6/uL (4.50-5.90); WHITE BLOOD COUNT 6.2 10*3/uL (4.8-10.8)
[2019-09-13 20:23] LABS: URINE PHENCYCLIDINE < 25 (25ng/ml)
[2019-09-13 20:48] LABS: ALBUMIN 3.2 gm/dl (3.1-4.5); ALKALINE PHOSPHATASE 58 U/L (45-117); BUN 27 mg/dl (7-24); CHLORIDE 106 mmol/L (98-107); CREATININE 1.49 mg/dL (0.70-1.30); POTASSIUM 4.2 mmol/L (3.5-5.1); SGOT/AST 18 IU/L (3-35); SGPT/ALT 24 U/L (12-78); SODIUM 136 mmol/L (136-145); TOTAL PROTEIN 6.8 gm/dL (6.4-8.2)
[2019-09-13 20:51] LABS: TROPONIN I < 0.015 ng/ml (<0.045)
[2019-09-13] MEDS ORDERED: KEFLEX500 M1 PO (21:27)
[2019-09-13 22:00] VITALS: BP 144/68
[2019-09-13 22:30] VITALS: BP 117/70
[2019-09-13 22:55] VITALS: BP 149/62
[2019-09-13] MEDS ORDERED: VENT7GM INH (23:52)
[2019-09-13] MEDS ORDERED: VITAMIN D32000 UNI2 PO (23:56)
[2019-09-13] MEDS ORDERED: BASAG SOL SQ (23:57)
[2019-09-13] MEDS ORDERED: GLUCAGON HC1 MG/1 ML IJ (23:59)
[2019-09-14] MEDS ORDERED: GLUTOSE 1537.5 GM PO
[2019-09-14] MEDS ORDERED: MILK OF MA400 MG/5 M PO (00:02)
[2019-09-14] MEDS ORDERED: MIRALAX119 GM PO (00:04)
[2019-09-14] MEDS ORDERED: ACETAMINOPHEN325 M2 PO (00:07)
[2019-09-14] MEDS ORDERED: DULCOLAX10 M1 R (00:09)
[2019-09-14 08:00] VITALS: BP 112/50; BP 126/74
[2019-09-14 12:00] VITALS: BP 128/58
[2019-09-14 16:00] VITALS: BP 137/44
[2019-09-14 20:00] VITALS: BP 117/45
[2019-09-14 22:00] VITALS: BP 131/57
[2019-09-15] VITALS: BP 140/55
[2019-09-15 07:50] VITALS: BP 126/66
[2019-09-15 08:04] VITALS: BP 140/70
[2019-09-15 12:00] VITALS: BP 120/50
[2019-09-15 16:00] VITALS: BP 145/56
[2019-09-15 20:00] VITALS: BP 150/54
[2019-09-16] VITALS: BP 159/65
[2019-09-16 08:00] VITALS: BP 132/88; BP 146/69
[2019-09-16 12:00] VITALS: BP 142/69
[2019-09-16 16:00] VITALS: BP 123/55
[2019-09-16 20:00] VITALS: BP 125/51
[2019-09-17] VITALS: BP 150/80; BP 171/68
[2019-09-17 08:00] VITALS: BP 166/74
[2019-09-17] MEDS ORDERED: Lantus SC (09:47)
[2019-09-17] MEDS ORDERED: TAMSULOSIN HCL0.4 MG PO (09:47)
== END 2019-09-17 11:50 | disposition other institution (70) | DRG 725 ==
LOC: ED 19:30 → 4E 22:19 → EDHOLD 22:19 → 4E 22:32
PROVIDERS: Emergency Medicine Emergency Medical Services; ADMIT Internal Medicine
DX: N40.1 Benign prostatic hyperplasia with lower urinary tract symptoms (principal); G93.41 Metabolic encephalopathy; N39.0 Urinary tract infection, site not specified; F33.1 Major depressive disorder, recurrent, moderate; R33.8 Other retention of urine; I12.9 Hypertensive chronic kidney disease with stage 1 through stage 4 chronic kidney disease, or unspecified chronic kidney disease; N18.3 Chronic kidney disease, stage 3 (moderate); E11.22 Type 2 diabetes mellitus with diabetic chronic kidney disease; G30.1 Alzheimer's disease with late onset; F02.80 Dementia in other diseases classified elsewhere, unspecified severity, without behavioral disturbance, psychotic disturbance, mood disturbance, and anxiety; R62.7 Adult failure to thrive; R31.9 Hematuria, unspecified; K21.0 Gastro-esophageal reflux disease with esophagitis; T68.XXXA Hypothermia, initial encounter; K59.09 Other constipation; E55.9 Vitamin D deficiency, unspecified; F41.1 Generalized anxiety disorder; I25.10 Atherosclerotic heart disease of native coronary artery without angina pectoris; Z68.23 Body mass index [BMI] 23.0-23.9, adult; Z79.82 Long term (current) use of aspirin; Z79.4 Long term (current) use of insulin; Z79.899 Other long term (current) drug therapy; Z98.49 Cataract extraction status, unspecified eye

== ENCOUNTER 2019-09-22 05:38 | Inpatient (IN) | payer MEDICARE, MEDICAID ==
[~2019-09-22] VITALS: Ht 185.4 cm; Wt 78.7 kg
[~2019-09-22 05:38] MED LIST changes: +ACETAMINOPHEN325 M2 PO; +BASAG SOL SQ; +DULCOLAX10 M1 R; +GLUCAGON HC1 MG/1 ML IJ; +GLUTOSE 1537.5 GM PO; +KEFLEX500 M1 PO; +Lantus SC; +MILK OF MA400 MG/5 M PO; +MIRALAX119 GM PO; +TAMSULOSIN HCL0.4 MG PO; +VENT7GM INH; +VITAMIN D32000 UNI2 PO
[2019-09-22 05:43] VITALS: BP 117/68
[2019-09-22] MEDS ORDERED: ACCUNEB 0.1.25 MG/1 INH (05:52)
[2019-09-22] MEDS ORDERED: LANTUS SOL100 UNIT/1 SC (05:55)
[2019-09-22] MEDS ORDERED: VITAMIN D32000 UNI2 PO (06:00)
[2019-09-22 06:12] LABS: BILIRUBIN NEGATIVE (NEGATIVE); CLARITY SL CLOUDY (CLEAR); COLOR YELLOW (YELLOW); GLUCOSE NEGATIVE (NEGATIVE)
[2019-09-22 06:13] LABS: BACTERIA TRACE; BLOOD NEGATIVE (NEGATIVE); EPITHELIAL CELLS 0-2; KETONE NEGATIVE (NEGATIVE); LEUKO ESTERASE NEGATIVE (NEGATIVE); NITRITE NEGATIVE (NEGATIVE); URINE AMPHETAMINES < 1000 (1000ng/ml); URINE BARBITURATES < 200 (200ng/ml); URINE BENZODIAZEPINES < 200 (200ng/ml); URINE CANNABINOIDS (THC) < 50 (50ng/ml); URINE COCAINE < 300 (300ng/ml); URINE METHADONE < 300 (300ng/ml); URINE OPIATES < 300 (300ng/ml); UROBILINOGEN 0.2 E.U./dl (0.2-1.0)
[2019-09-22 06:15] LABS: URINE PHENCYCLIDINE < 25 (25ng/ml)
[2019-09-22 06:27] LABS: BASO % 0.1 % (0.0-1.0); EOS # 0.1 10*3/uL (0.0-0.4); EOS % 1.3 % (1.0-4.0); HEMATOCRIT 36.2 % (42.0-52.0); LYMPH # 2.5 10*3/uL (1.3-4.4); LYMPH % 30.3 % (27.0-41.0); MEAN CELL VOLUME 90.7 fl (80.0-94.0); MEAN CORPUSCULAR HGB 29.6 pg (27.0-31.0); MEAN CORPUSCULAR HGB CONC 32.6 g/dl (33.0-37.0); MEAN PLATELET VOLUME 8.8 fl (9.6-12.3); MONO # 0.8 10*3/uL (0.1-1.0); MONO % 9.2 % (3.0-9.0); NEUT # 4.8 10*3/uL (2.3-7.9); NEUT % 58.7 % (47.0-73.0); PLATELET COUNT AUTOMATED 221 10*3/uL (130-400); RED BLOOD COUNT 3.99 10*6/uL (4.50-5.90); WHITE BLOOD COUNT 8.2 10*3/uL (4.8-10.8)
[2019-09-22 06:36] LABS: ACT PARTIAL THROMBO TIME 24.6 SECONDS (20.0-32.1)
[2019-09-22 06:40] LABS: ALBUMIN 3.6 gm/dl (3.1-4.5); ALKALINE PHOSPHATASE 88 U/L (45-117); BUN 49 mg/dl (7-24); CHLORIDE 108 mmol/L (98-107); CREATININE 1.83 mg/dL (0.70-1.30); LIPASE 65 U/L (73-393); POTASSIUM 4.7 mmol/L (3.5-5.1); SGOT/AST 28 IU/L (3-35); SGPT/ALT 33 U/L (12-78); SODIUM 140 mmol/L (136-145); TOTAL PROTEIN 7.4 gm/dL (6.4-8.2)
[2019-09-22 06:41] LABS: ACETAMINOPHEN (TYLENOL) < 5.0 ug/ml (10-30); ETHYL ALCOHOL < 3.0 mg/dl (<3); TROPONIN I < 0.015 ng/ml (<0.045)
[2019-09-22 07:21] VITALS: BP 116/79
[2019-09-22 08:11] VITALS: BP 133/76
[2019-09-22 12:00] VITALS: BP 139/70
[2019-09-22] MEDS ORDERED: PROAIR HFA8.5 GM INH (14:40)
[2019-09-22] MEDS ORDERED: FLEET ENEMA 13133 ML R (14:44)
[2019-09-22] MEDS ORDERED: ACID REDUCER20 MG PO (14:47)
[2019-09-22 16:00] VITALS: BP 128/71
[2019-09-22 20:00] VITALS: BP 155/90
[2019-09-23] VITALS: BP 138/100
[2019-09-23 12:00] VITALS: BP 165/65
[2019-09-23 16:00] VITALS: BP 160/59
[2019-09-23 20:00] VITALS: BP 131/52
[2019-09-24] VITALS: BP 138/46
[2019-09-24 08:00] VITALS: BP 142/82
[2019-09-24 09:11] LABS: BASO % 0.3 % (0.0-1.0); EOS # 0.3 10*3/uL (0.0-0.4); HEMATOCRIT 32.3 % (42.0-52.0); LYMPH # 2.1 10*3/uL (1.3-4.4); LYMPH % 32.7 % (27.0-41.0); MEAN CELL VOLUME 93.1 fl (80.0-94.0); MEAN CORPUSCULAR HGB 29.7 pg (27.0-31.0); MEAN CORPUSCULAR HGB CONC 31.9 g/dl (33.0-37.0); MEAN PLATELET VOLUME 8.6 fl (9.6-12.3); MONO # 0.7 10*3/uL (0.1-1.0); MONO % 11.8 % (3.0-9.0); NEUT # 3.2 10*3/uL (2.3-7.9); PLATELET COUNT AUTOMATED 189 10*3/uL (130-400); RED BLOOD COUNT 3.47 10*6/uL (4.50-5.90); WHITE BLOOD COUNT 6.3 10*3/uL (4.8-10.8)
[2019-09-24 09:38] LABS: BUN 34 mg/dl (7-24); CHLORIDE 115 mmol/L (98-107); CREATININE 1.23 mg/dL (0.70-1.30); SODIUM 143 mmol/L (136-145)
[2019-09-24 12:00] VITALS: BP 134/86
[2019-09-24 16:00] VITALS: BP 150/57
[2019-09-24 20:00] VITALS: BP 154/69
[2019-09-25] VITALS: BP 160/70
[2019-09-25 06:12] LABS: BASO % 0.1 % (0.0-1.0); EOS # 0.4 10*3/uL (0.0-0.4); EOS % 4.9 % (1.0-4.0); HEMATOCRIT 31.9 % (42.0-52.0); LYMPH # 2.1 10*3/uL (1.3-4.4); LYMPH % 26.8 % (27.0-41.0); MEAN CELL VOLUME 90.4 fl (80.0-94.0); MEAN CORPUSCULAR HGB 29.5 pg (27.0-31.0); MEAN CORPUSCULAR HGB CONC 32.6 g/dl (33.0-37.0); MEAN PLATELET VOLUME 9.5 fl (9.6-12.3); MONO # 0.8 10*3/uL (0.1-1.0); MONO % 10.5 % (3.0-9.0); NEUT # 4.4 10*3/uL (2.3-7.9); NEUT % 57.4 % (47.0-73.0); PLATELET COUNT AUTOMATED 204 10*3/uL (130-400); RED BLOOD COUNT 3.53 10*6/uL (4.50-5.90); RED CELL DISTRI WIDTH 11.9 % (0-14.5); WHITE BLOOD COUNT 7.7 10*3/uL (4.8-10.8)
[2019-09-25 06:37] LABS: BUN 26 mg/dl (7-24); CHLORIDE 115 mmol/L (98-107); CREATININE 1.16 mg/dL (0.70-1.30); POTASSIUM 3.6 mmol/L (3.5-5.1); SODIUM 143 mmol/L (136-145)
[2019-09-25 08:40] VITALS: BP 122/60
[2019-09-25] MEDS ORDERED: CEFUROXIME AXE250 MG PO (08:46)
== END 2019-09-25 16:34 | disposition other institution (70) | DRG 70 ==
LOC: ED 05:38 → 4E 08:03 → EDHOLD 08:03 → 4E 08:08
PROVIDERS: Emergency Medicine Emergency Medical Services; ADMIT Internal Medicine
DX: G93.41 Metabolic encephalopathy (principal); N17.0 Acute kidney failure with tubular necrosis; F33.1 Major depressive disorder, recurrent, moderate; G30.1 Alzheimer's disease with late onset; F02.80 Dementia in other diseases classified elsewhere, unspecified severity, without behavioral disturbance, psychotic disturbance, mood disturbance, and anxiety; F41.1 Generalized anxiety disorder; Z66 Do not resuscitate; Z51.5 Encounter for palliative care; I12.9 Hypertensive chronic kidney disease with stage 1 through stage 4 chronic kidney disease, or unspecified chronic kidney disease; E11.22 Type 2 diabetes mellitus with diabetic chronic kidney disease; N18.3 Chronic kidney disease, stage 3 (moderate); E86.0 Dehydration; R55 Syncope and collapse; R00.0 Tachycardia, unspecified